=== PATIENT | female | born 1990 | race Two or more races ===

== ENCOUNTER 2017-02-14 14:30 | Inpatient (IN) | payer OTHER, MEDICAID ==
[~2017-02-14] VITALS: Ht 165.1 cm; Wt 76.8 kg
--- NOTE | ~2017-02-14 | DS ---
PATIENT'S NAME: JAYNA [facility] AGE: 26 Y [address] ROOM: [place] [address] LOCATION: [facility] ADMIT DATE: 02/14/2017 Discharge Summary DISCHARGE DATE: 02/16/2017 FAMILY PHYSICIAN: Alisson Zhong DO ATTENDING PHYSICIAN: Zakia Smith ADMISSION DIAGNOSES: 1. Intrauterine at 34 weeks and 4 days. 2. contractions. 3. History of low-lying placenta, resolved. DISCHARGE DIAGNOSES: 1. Intrauterine at 34 weeks and 4 days. 2. contractions. 3. History of low-lying placenta, resolved. HISTORY AND HOSPITAL COURSE: The patient is a 26-year-old G2, P1-0-0-1 who presented on February 14 as a transfer from [place] due to concerns for contractions and possible labor. The patient was 2 to 3 cm dilated at the outside hospital and was melissa approximately every 2 to 3 minutes. Her had been complicated by history of a low-lying placenta that has since resolved. The patient was given a dose of Celestone prior to being transferred here. Upon arrival here, the patient's cervix had not changed. She was monitored overnight and made no further cervical change. She received a 2nd dose of Celestone on the afternoon of February 15. On the morning of February 16, the patient was still feeling occasional contractions. The cervix was still 2 to 3 cm dilated and she was felt to be stable to discharge back to [place]. The patient has a followup scheduled tomorrow with Dr. Zhong. DISCHARGE MEDICATIONS: 1. Ferrous sulfate. 2. vitamin. DISCHARGE PRECAUTIONS: The patient was instructed to call with worsening painful contractions, large gush of fluid, decreased movement, or vaginal bleeding similar to a period. ZAKIA SMITH MD GT/gordon PATIENT'S NAME: [facility] AGE: 26 Y [address] ROOM: [place] [address] LOCATION: [facility] ADMIT DATE: 02/14/2017 Discharge Summary DISCHARGE DATE: 02/16/2017 FAMILY PHYSICIAN: Alisson Zhong DO ATTENDING PHYSICIAN: Zakia Smith /[id number] d: 02/17/17 0252 t: 02/19/17 0853, DISCHARGE SUMMARY
--- NOTE | ~2017-02-14 | HP ---
PATIENT'S NAME: JAYNA [facility] AGE: 26 Y [address] ROOM: [place] [id number] LOCATION: [facility] ADMIT DATE: 02/14/2017 History & Physical DISCHARGE DATE: FAMILY PHYSICIAN: PHYSICIAN, UNKNOWN ATTENDING PHYSICIAN: AMANDEEP VIVAS DATE OF SERVICE: HISTORY OF PRESENT ILLNESS: The patient is a 26-year-old G2 P 1-0-0-1, who initially presented for evaluation in [place] yesterday due to complaints of vaginal bleeding and contractions. The patient was given IV hydration, but continued to contract. She did not have any brisk vaginal bleeding. Ultrasound was performed that showed a fetus and confirmed cephalic presentation and normal fluid with an BRANDYN of 12. Her cervix was checked and was 2 cm dilated. Due to her gestational age of 34 weeks and 4 days and then concern for labor, it was recommended that she be transferred here to [place] due to concern for delivery. The patient's has been complicated by history of a low-lying placenta that has since resolved. 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 After I was contacted by Dr. Zhong, I recommended that she be given a dose of Celestone which was given at 1400. Upon arrival here, the patient is still melissa approximately every 2-4 minutes. She states that they are about the same in intensity. She has not had any brisk vaginal bleeding. She did report a one time episode of possible leaking, but Nitrazine was negative at that time. PAST MEDICAL HISTORY: Noncontributory. PAST SURGICAL HISTORY: Noncontributory. SENIOR HEALTH CONSULTANT HISTORY: Her last menstrual period was June 21, 2016, with dating by an 8-week ultrasound. She has had one previous vaginal delivery at 39 weeks and denies any complications with that or delivery. SOCIAL HISTORY: She lives with her significant other and child. She denies any tobacco, alcohol, or drug use. As stated above, she does have a history of drug use in 2010, but has been clean since that time. MEDICATIONS: She is on: PATIENT'S NAME: JAYNA [facility] AGE: 26 Y [address] ROOM: [place] [id number] LOCATION: [facility] ADMIT DATE: 02/14/2017 History & Physical DISCHARGE DATE: FAMILY PHYSICIAN: PHYSICIAN, UNKNOWN ATTENDING PHYSICIAN: AMANDEEP VIVAS 1. Colace. 2. vitamins. REVIEW OF SYSTEMS: Negative except as noted above. PHYSICAL EXAMINATION: GENERAL: She appears awake, alert, and oriented. Does not appear to be in any acute distress. HEART: Regular rate and rhythm. LUNGS: Clear to auscultation bilaterally. ABDOMEN. Gravid, consistent with dates. On review of her external monitoring again, she is melissa approximately every 1-4 minutes. heart tones have a baseline of 140 with moderate variability, positive accels, and no decels. VITAL SIGNS: Stable. ASSESSMENT AND PLAN: This is a 26-year-old G2, P 1-0-0-1 at 34 weeks and 4 days with contractions. 1. Intrauterine . status reassuring at this time, has received Celestone x1 dose. Plan to repeat tomorrow at 1400 if delivery does not happen before that time. 2. contractions. The patient's cervix was rechecked. She is still approximately 2 cm dilated here. Discussed with the patient that I would like to keep her until she is steroid complete, likely until Tuesday morning to make sure that she is not changing her cervix. At that time, if she has not made any further cervical change, we would plan to send her back to [place]. She was agreeable to this plan. If the patient should start laboring and changing her cervix, we would recommend that she receive penicillin for GBS prophylaxis, so she is currently GBS unknown. 3. Anemia. The patient's hemoglobin was 10 on an outside lab. Not currently on ferrous sulfate. We will initiate ferrous sulfate during this hospitalization. AMANDEEP VIVAS MD GT/modl /[id number] D: 358 T: 013 HISTORY & PHYSICAL
[2017-02-14] MEDS ORDERED: PRENATAL 1+1)(P1 TAB PO (16:35)
--- NOTE | 2017-02-15 17:56 | NUR ---
Last VS: T:98.2 P: R: 16 BP: Pain ratin. Last pain med: tylenol* Medicated at: 1645 Effective: Minimal relief FHT: Dilatation: no VE this shift Significant event: Showered today. Resting in bed. Occasional ctx noted on monitors this morning. Celestone Im given at 1400. *.
[2017-02-16] MEDS ORDERED: ACETAMINOPHEN325 MG PO (10:37)
[2017-02-16] MEDS ORDERED: FEOSOL325 MG PO (10:37)
== END 2017-02-16 10:55 | disposition disaster alternative care site (69) | DRG 778 ==
LOC: GOBS 16:11
PROVIDERS: ADMIT Obstetrics & Gynecology
DX: O60.03 Preterm labor without delivery, third trimester (principal); D64.9 Anemia, unspecified; O99.013 Anemia complicating pregnancy, third trimester; Z3A.34 34 weeks gestation of pregnancy
CPT/HCPCS: G0463; J0702; J7120